=== PATIENT | female | born 1985 | race Caucasian/White ===

== ENCOUNTER 2017-12-01 19:49 | Emergency (ER) | payer MEDICAID ==
[2017-12-01 20:17] VITALS: BP 154/73
[2017-12-01] MEDS ORDERED: Ibuprofen 600 MG Tab PO ONE (20:23)
--- NOTE | 2017-12-01 20:25 | EDM.PDOC ---
ED HPI GENERAL MEDICAL PROBLEM - General Chief Complaint: Upper Extremity Injury/Pain Stated Complaint: SMASHED FINGERS Time Seen by Provider: 12/01/17 20:20 Source of Information: Reports: Patient, Family, RN Notes Reviewed History Limitations: Reports: No Limitations - History of Present Illness INITIAL COMMENTS - FREE TEXT/NARRATIVE: 32-year-old female presents emergency department today complaint of trauma to her left hand she accidentally crushed her fingertips folding chair. She has full range of motion of the digits however she has numbness and tingling in the distal tips of digits 3 and 4 left 3rd 4th and 5th fingers Pain Score (Numeric/FACES): 9 - Related Data Allergies Allergy/AdvReac Type Severity Reaction Status Date / Time No Known Allergies Allergy Verified 12/01/17 20:10 Home Meds: Home Meds NK [No Known Home Meds] 12/01/17 [History] Past Medical History Cardiovascular History: Reports: Heart Murmur [employer]IST History: Reports: Other [employer]IST History: 2 sets of twins Hematologic History: Reports: Anemia - Infectious Disease History Infectious Disease History: Reports: Chicken Pox - Past Surgical History GI Surgical History: Reports: Cholecystectomy Female Surgical History: Reports: Section Social & Family History - Tobacco Use Smoking Status *Q: Never Smoker - Caffeine Use Caffeine Use: Reports: Coffee - Recreational Drug Use Recreational Drug Use: No Review of Systems - Review of Systems Review Of Systems: See Below Musculoskeletal: Reports: Hand Pain Neurological: Reports: Numbness, Tingling ED EXAM, GENERAL - Physical Exam Exam: See Below Free Text/Narrative:: examination left hand I do appreciate the edema and digits 3 there is a small hematoma formed distal tip of digit 3 full range of motion of all digits radial pulses +2 sensation is intact Course - Vital Signs Last Recorded V/S: Last Vital Signs Temp 96.5 F 12/01/17 20:16 Pulse 80 12/01/17 20:16 Resp 17 12/01/17 20:16 BP 154/73 H 12/01/17 20:16 Pulse Ox 99 12/01/17 20:16 - Orders/Labs/Meds Orders: Active Orders 24 hr Category Date Time Status Fingers Multiple Lt [CR] Stat Exams 12/01/17 20:23 Taken Meds: Medications Discontinued Medications Generic Name Dose Route Start Last Admin Trade Name Freq PRN Reason Stop Dose Admin Ibuprofen 600 mg 12/01/17 20:23 12/01/17 20:28 Motrin PO 12/01/17 20:24 600 mg ONETIME ONE Administration Departure - Departure Time of Disposition: 21:15 Disposition: Home, Self-Care 01 Condition: Good Clinical Impression: Crushed finger Qualifiers: Encounter type: initial encounter Qualified Code(s): S67.10XA - Crushing injury of unspecified finger(s), initial encounter - Discharge Information Referrals: Cortez Monterroso MD [Primary Care Provider] - Forms: ED Department Discharge Additional Instructions: Use Tylenol or Motrin as needed for pain control, Please followup with your primary care provider in 3-5 days if not better, please call return to the emergency department with worsening of symptoms. - My Orders Last 24 Hours: My Active Orders 12/01/17 20:23 Fingers Multiple Lt [CR] Stat - Assessment/Plan Last 24 Hours: My Active Orders 12/01/17 20:23 Fingers Multiple Lt [CR] Stat Plan: Assessment Acuity = acute Site and laterality = crush injury multiple fingers Etiology = secondary to trauma with a chair Manifestations = pain Location of injury = Home Lab values = x-ray of finger I did review films myself I cannot appreciate any acute process, the official read from radiology is pending Plan Symptomatically care Tylenol or Motrin as needed, ice follow-up primary care 3- 5 days if not better This note was dictated using [employer] voice recognition software please call with any questions on syntax or grammar.
--- NOTE | 2017-12-03 10:35 | CR ---
Fingers Multiple Lt CLINICAL HISTORY: Pain, trauma Particular surfaces are smooth FINDINGS: No fracture or dislocation is identified. IMPRESSION: Negative
== END 2017-12-01 21:27 | disposition home or self-care (01) ==
LOC: JP.ED 19:49
DX: S67.193A Crushing injury of left middle finger, initial encounter (principal); S67.195A Crushing injury of left ring finger, initial encounter; S67.197A Crushing injury of left little finger, initial encounter; X58.XXXA Exposure to other specified factors, initial encounter
CPT/HCPCS: 73140; 99284; A9270